=== PATIENT | female | born 1970 | race Caucasian/White ===

== ENCOUNTER 2022-12-27 08:21 | Inpatient (IN) | payer MEDICAID ==
[~2022-12-27] VITALS: Ht 157.5 cm; Wt 80.0 kg
[2022-12-27] MEDS ORDERED: ENAL-88 PO (08:34)
[2022-12-27] MEDS ORDERED: MORPHINE SULFATE 4 MG/ML SYRINGE IVP ONE (09:45)
[2022-12-27 10:03] LABS: BASOPHILS % (AUTO) 0.6 % (0.0-2.0); EOSINOPHILS % (AUTO) 0.4 % (1.0-6.0); HEMATOCRIT 38.5 % (36-46); HEMOGLOBIN 12.9 g/dL (12.0-16.0); LYMPHOCYTES # (AUTO) 1.5 K/uL (1.0-4.8); LYMPHOCYTES % (AUTO) 15.5 % (22.0-44.0); MEAN CORPUSCULAR HEMOGLOBIN 28.2 pg (26.0-34.0); MEAN CORPUSCULAR HGB CONC 33.5 G/dL (31.0-37.0); MEAN CORPUSCULAR VOLUME 84 fL (80-100); MONOCYTES # (AUTO) 0.5 K/uL (0.1-1.0); MONOCYTES % (AUTO) 5.6 % (2.0-9.0); NEUTROPHILS # (AUTO) 7.3 K/uL (1.8-7.7); NEUTROPHILS % (AUTO) 77.9 % (40.0-70.0); PLATELET COUNT (AUTO) 226 K/uL (150-450); RED BLOOD CELL COUNT(AUTO) 4.57 MIL/uL (4.00-5.20); RED CELL DISTRIBUTION WIDTH 14.9 % (11.5-14.5)
[2022-12-27 10:11] LABS: ANION GAP 6 mmol/L (8-16); CALCIUM, TOTAL 9.3 mg/dL (8.8-10.5); CARBON DIOXIDE 29 mmol/L (22-29); CHLORIDE 99 mmol/L (98-107); CREATININE 0.74 mg/dL (0.60-1.30); GLOMERULAR FILTR. RATE CALC > 60 mL/min (>60); GLUCOSE,RANDOM 99 mg/dL (70-110); POTASSIUM 4.6 mmol/L (3.5-5.1); SODIUM SERUM 134 mmol/L (136-145); UREA NITROGEN, BLOOD 18 mg/dL (7-18)
[2022-12-27] MEDS ORDERED: ONDANSETRON HCL 4 MG/2 ML VIAL IVP PRN (10:15)
[2022-12-27] MEDS ORDERED: MORPHINE SULFATE 4 MG/ML SYRINGE IVP PRN (10:15)
[2022-12-27] MEDS ORDERED: SODIUM CHLORIDE 0.9% 1,000 ML IV ONE (10:15)
[2022-12-27] MEDS ORDERED: ACETAMINOPHEN 325 MG TABLET PO PRN (10:15)
[2022-12-27] MEDS ORDERED: HYDROCODONE/ACETAMINOPHEN 5-325 MG TABLET PO PRN ×2 (10:15→13:45)
[2022-12-27 10:16] LABS: ALANINE AMINOTRANSFERASE 30 U/L (12-78); ALBUMIN 4.3 g/dL (3.4-5.0); ALKALINE PHOSPHATASE 63 U/L (46-116); ASPARTATE AMINOTRANSFERASE 27 U/L (15-37); BILIRUBIN,TOTAL 0.4 mg/dL (0.1-1.0); TOTAL PROTEIN, SERUM 7.9 g/dL (6.4-8.2)
[2022-12-27 10:26] LABS: COVID AG,FIA SOURCE NASOPHARYNGEAL
[2022-12-27] MEDS ORDERED: FentaNYL CITRATE PF 100 MCG/2 ML VIAL IVP ONE (12:00)
[2022-12-27] MEDS ORDERED: HYDROmorphone HCL 2 MG/ML SYRINGE IVP ONE (12:00)
[2022-12-27] MEDS ORDERED: MIDAZOLAM HCL 2 MG/2 ML VIAL IVP ONE (12:00)
[2022-12-27 12:06] VITALS: BP 139/61
[2022-12-27] MEDS ORDERED: BISACODYL 10 MG RECTAL RECTAL SUPPOSITORY PR PRN (13:45)
[2022-12-27] MEDS ORDERED: MORPHINE SULFATE 2 MG/ML SYRINGE IVP PRN (13:45)
[2022-12-27] MEDS ORDERED: MAGNESIUM HYDROXIDE SUSPENSION 30 ML UDCUP PO PRN (13:45)
[2022-12-27 15:38] VITALS: BP 129/73
[2022-12-27] MEDS ORDERED: HEPARIN SODIUM,PORCINE 5,000 UNITS/ML VIAL SQ SCH (16:00)
[2022-12-27] MEDS ORDERED: RINGERS SOLUTION,LACTATED 1,000 ML IV ONE (16:23)
[2022-12-27] MEDS ORDERED: VANCOMYCIN HCL 1 GM/VIAL ONE (17:01)
[2022-12-27] MEDS ORDERED: BUPIVACAINE HCL/PF 0.5% 30 ML VIAL ONE (17:02)
[2022-12-27] MEDS ORDERED: BUPIVACAINE HCL/PF 0.25% 30 ML VIAL ONE (17:24)
[2022-12-27] MEDS ORDERED: BUPIVACAINE LIPOSOME/PF 1.3%-13.3MG/ML SUSPENSION 20 ML VIAL INJ ONE (17:30)
[2022-12-27] MEDS ORDERED: MEPERIDINE-PF 25 MG/ML VIAL IVP PRN (18:15)
[2022-12-27] MEDS ORDERED: HYDROmorphone HCL 2 MG/ML SYRINGE IVP PRN (18:15)
[2022-12-27] MEDS ORDERED: FentaNYL CITRATE PF 100 MCG/2 ML VIAL ONE (19:08)
[2022-12-27] MEDS: FentaNYL CITRATE PF 100 MCG/2 ML VIAL IVP PRN ×2 (19:11→19:24)
[2022-12-27] MEDS ORDERED: HYDROmorphone HCL 2 MG/ML SYRINGE ONE (19:13)
[2022-12-27] MEDS: OXYGEN THERAPY IH SCH (20:00)
[2022-12-27 20:11] VITALS: BP 134/75
[2022-12-27] MEDS: DOCUSATE SODIUM 100 MG CAPSULE PO SCH (20:11)
[2022-12-27] MEDS: HYDROCODONE/ACETAMINOPHEN 5-325 MG TABLET PO PRN (21:36)
[2022-12-28] MEDS: CeFAZolin 2 GM/DEXTROSE 50 ML IV SCH ×3 (01:27→18:05)
[2022-12-28] MEDS: ONDANSETRON HCL 4 MG/2 ML VIAL IVP PRN (04:28)
[2022-12-28 05:20] VITALS: BP 137/82
[2022-12-28] MEDS: HYDROCODONE/ACETAMINOPHEN 5-325 MG TABLET PO PRN ×3 (06:11→17:50)
[2022-12-28] MEDS ORDERED: LIDOCAINE/PF 2% 5 ML VIAL IM ONE (06:34)
[2022-12-28] MEDS ORDERED: PROPOFOL 1% 20 ML VIAL IVP ONE (06:34)
[2022-12-28] MEDS ORDERED: ONDANSETRON HCL 4 MG/2 ML VIAL IVP ONE (06:34)
[2022-12-28] MEDS ORDERED: ROCURONIUM BROMIDE 10 MG/ML 5 ML VIAL IVP ONE (06:34)
[2022-12-28] MEDS ORDERED: FentaNYL CITRATE PF 100 MCG/2 ML VIAL IVP ONE (06:34)
[2022-12-28] MEDS ORDERED: MIDAZOLAM HCL 2 MG/2 ML VIAL IVP ONE (06:34)
[2022-12-28] MEDS ORDERED: DEXAMETHASONE SOD PHOS 4 MG/ML VIAL IVP ONE (06:34)
[2022-12-28 06:35] LABS: BASOPHILS % (AUTO) 0.3 % (0.0-2.0); EOSINOPHILS % (AUTO) 0.2 % (1.0-6.0); HEMATOCRIT 34.3 % (36-46); HEMOGLOBIN 11.5 g/dL (12.0-16.0); LYMPHOCYTES # (AUTO) 1.4 K/uL (1.0-4.8); LYMPHOCYTES % (AUTO) 21.7 % (22.0-44.0); MEAN CORPUSCULAR HEMOGLOBIN 28.1 pg (26.0-34.0); MEAN CORPUSCULAR HGB CONC 33.6 G/dL (31.0-37.0); MEAN CORPUSCULAR VOLUME 84 fL (80-100); MONOCYTES # (AUTO) 0.6 K/uL (0.1-1.0); MONOCYTES % (AUTO) 8.8 % (2.0-9.0); NEUTROPHILS # (AUTO) 4.5 K/uL (1.8-7.7); PLATELET COUNT (AUTO) 226 K/uL (150-450); RED CELL DISTRIBUTION WIDTH 14.8 % (11.5-14.5)
[2022-12-28 06:50] LABS: ANION GAP 10 mmol/L (8-16); CALCIUM, TOTAL 8.8 mg/dL (8.8-10.5); CARBON DIOXIDE 26 mmol/L (22-29); CHLORIDE 101 mmol/L (98-107); CREATININE 0.59 mg/dL (0.60-1.30); GLOMERULAR FILTR. RATE CALC > 60 mL/min (>60); GLUCOSE,RANDOM 105 mg/dL (70-110); SODIUM SERUM 137 mmol/L (136-145); UREA NITROGEN, BLOOD 11 mg/dL (7-18)
[2022-12-28 07:32] VITALS: BP 145/92
[2022-12-28] MEDS: PANTOPRAZOLE SODIUM 40 MG DR TABLET PO SCH (07:57)
[2022-12-28] MEDS: ENALAPRIL MALEATE 5 MG TABLET PO SCH (07:58)
[2022-12-28] MEDS: DOCUSATE SODIUM 100 MG CAPSULE PO SCH ×2 (07:58→20:08)
[2022-12-28] MEDS: ENOXAPARIN SODIUM 40 MG/0.4 ML PF SYRINGE SQ SCH (07:59)
[2022-12-28] MEDS: OXYGEN THERAPY IH SCH (08:00)
[2022-12-28] MEDS: ACETAMINOPHEN 325 MG TABLET PO PRN ×2 (10:19→14:40)
[2022-12-28 15:22] VITALS: BP 115/73
[2022-12-28 21:41] VITALS: BP 118/71
[2022-12-29] MEDS: HYDROCODONE/ACETAMINOPHEN 5-325 MG TABLET PO PRN ×5 (00:33→20:04)
[2022-12-29 04:40] VITALS: BP 137/89
[2022-12-29 06:44] VITALS: BP 110/69
[2022-12-29 07:00] LABS: BASOPHILS % (AUTO) 0.7 % (0.0-2.0); EOSINOPHILS % (AUTO) 1.7 % (1.0-6.0); HEMATOCRIT 33.6 % (36-46); HEMOGLOBIN 11.3 g/dL (12.0-16.0); LYMPHOCYTES # (AUTO) 2.3 K/uL (1.0-4.8); LYMPHOCYTES % (AUTO) 28.4 % (22.0-44.0); MEAN CORPUSCULAR HEMOGLOBIN 28.4 pg (26.0-34.0); MEAN CORPUSCULAR HGB CONC 33.5 G/dL (31.0-37.0); MEAN CORPUSCULAR VOLUME 85 fL (80-100); MONOCYTES # (AUTO) 0.7 K/uL (0.1-1.0); NEUTROPHILS % (AUTO) 61.2 % (40.0-70.0); PLATELET COUNT (AUTO) 199 K/uL (150-450); RED BLOOD CELL COUNT(AUTO) 3.97 MIL/uL (4.00-5.20); RED CELL DISTRIBUTION WIDTH 14.8 % (11.5-14.5)
[2022-12-29 07:06] LABS: ANION GAP 6 mmol/L (8-16); CALCIUM, TOTAL 8.4 mg/dL (8.8-10.5); CARBON DIOXIDE 29 mmol/L (22-29); CHLORIDE 101 mmol/L (98-107); CREATININE 0.59 mg/dL (0.60-1.30); GLOMERULAR FILTR. RATE CALC > 60 mL/min (>60); GLUCOSE,RANDOM 103 mg/dL (70-110); SODIUM SERUM 136 mmol/L (136-145); UREA NITROGEN, BLOOD 13 mg/dL (7-18)
[2022-12-29 07:57] VITALS: BP 123/85
[2022-12-29] MEDS: PANTOPRAZOLE SODIUM 40 MG DR TABLET PO SCH (08:58)
[2022-12-29] MEDS: DOCUSATE SODIUM 100 MG CAPSULE PO SCH ×2 (08:58→20:03)
[2022-12-29] MEDS: ENALAPRIL MALEATE 5 MG TABLET PO SCH (08:58)
[2022-12-29] MEDS: ENOXAPARIN SODIUM 40 MG/0.4 ML PF SYRINGE SQ SCH (08:58)
[2022-12-29] MEDS: ONDANSETRON HCL 4 MG/2 ML VIAL IVP PRN (13:31)
[2022-12-29 15:13] VITALS: BP 120/73
[2022-12-29 20:00] VITALS: BP 119/78
[2022-12-30 05:36] VITALS: BP 123/85
[2022-12-30] MEDS: HYDROCODONE/ACETAMINOPHEN 5-325 MG TABLET PO PRN ×3 (06:10→19:40)
[2022-12-30 07:24] VITALS: BP 129/82
[2022-12-30 07:51] LABS: BASOPHILS % (AUTO) 0.4 % (0.0-2.0); EOSINOPHILS % (AUTO) 1.9 % (1.0-6.0); HEMATOCRIT 35.2 % (36-46); HEMOGLOBIN 11.5 g/dL (12.0-16.0); LYMPHOCYTES # (AUTO) 2.1 K/uL (1.0-4.8); LYMPHOCYTES % (AUTO) 27.6 % (22.0-44.0); MEAN CORPUSCULAR HEMOGLOBIN 27.8 pg (26.0-34.0); MEAN CORPUSCULAR HGB CONC 32.8 G/dL (31.0-37.0); MEAN CORPUSCULAR VOLUME 85 fL (80-100); MONOCYTES # (AUTO) 0.6 K/uL (0.1-1.0); MONOCYTES % (AUTO) 8.2 % (2.0-9.0); NEUTROPHILS # (AUTO) 4.6 K/uL (1.8-7.7); NEUTROPHILS % (AUTO) 61.9 % (40.0-70.0); PLATELET COUNT (AUTO) 211 K/uL (150-450); RED BLOOD CELL COUNT(AUTO) 4.16 MIL/uL (4.00-5.20); RED CELL DISTRIBUTION WIDTH 14.8 % (11.5-14.5)
[2022-12-30 08:00] LABS: ANION GAP 7 mmol/L (8-16); CARBON DIOXIDE 29 mmol/L (22-29); CHLORIDE 100 mmol/L (98-107); CREATININE 0.58 mg/dL (0.60-1.30); GLOMERULAR FILTR. RATE CALC > 60 mL/min (>60); GLUCOSE,RANDOM 102 mg/dL (70-110); SODIUM SERUM 136 mmol/L (136-145); UREA NITROGEN, BLOOD 15 mg/dL (7-18)
[2022-12-30] MEDS: OXYGEN THERAPY IH SCH ×2 (08:00→19:46)
[2022-12-30] MEDS: ENOXAPARIN SODIUM 40 MG/0.4 ML PF SYRINGE SQ SCH (08:09)
[2022-12-30] MEDS: ENALAPRIL MALEATE 5 MG TABLET PO SCH (08:09)
[2022-12-30] MEDS: DOCUSATE SODIUM 100 MG CAPSULE PO SCH ×2 (08:09→19:40)
[2022-12-30] MEDS: PANTOPRAZOLE SODIUM 40 MG DR TABLET PO SCH (08:10)
[2022-12-30 15:02] VITALS: BP 132/84
[2022-12-30 19:32] VITALS: BP 120/72
[2022-12-31 03:47] VITALS: BP 128/80
[2022-12-31] MEDS: HYDROCODONE/ACETAMINOPHEN 5-325 MG TABLET PO PRN ×4 (04:01→21:37)
[2022-12-31] MEDS: OXYGEN THERAPY IH SCH ×2 (08:00→19:29)
[2022-12-31 08:03] VITALS: BP 134/87
[2022-12-31] MEDS: DOCUSATE SODIUM 100 MG CAPSULE PO SCH ×2 (08:05→19:29)
[2022-12-31] MEDS: ENOXAPARIN SODIUM 40 MG/0.4 ML PF SYRINGE SQ SCH (08:05)
[2022-12-31] MEDS: ENALAPRIL MALEATE 5 MG TABLET PO SCH (08:05)
[2022-12-31] MEDS: PANTOPRAZOLE SODIUM 40 MG DR TABLET PO SCH (08:05)
[2022-12-31 16:00] VITALS: BP 113/76
[2022-12-31 20:14] VITALS: BP 121/74
[2022-12-31] MEDS ORDERED: MORPHINE SULFATE 2 MG/ML SYRINGE IVP ONE (23:15)
[2023-01-01 05:51] VITALS: BP 140/92
[2023-01-01] MEDS: OXYGEN THERAPY IH SCH (08:00)
[2023-01-01] MEDS: ENOXAPARIN SODIUM 40 MG/0.4 ML PF SYRINGE SQ SCH (08:54)
[2023-01-01] MEDS: HYDROCODONE/ACETAMINOPHEN 5-325 MG TABLET PO PRN ×4 (08:55→21:14)
[2023-01-01] MEDS: PANTOPRAZOLE SODIUM 40 MG DR TABLET PO SCH (08:56)
[2023-01-01] MEDS: DOCUSATE SODIUM 100 MG CAPSULE PO SCH ×2 (09:00→19:54)
[2023-01-01] MEDS: ENALAPRIL MALEATE 5 MG TABLET PO SCH (09:04)
[2023-01-01 20:02] VITALS: BP 125/75
[2023-01-02 03:47] VITALS: BP 113/71
[2023-01-02] MEDS: HYDROCODONE/ACETAMINOPHEN 5-325 MG TABLET PO PRN ×4 (05:23→23:12)
[2023-01-02 07:17] VITALS: BP 114/72
[2023-01-02] MEDS: PANTOPRAZOLE SODIUM 40 MG DR TABLET PO SCH (08:00)
[2023-01-02] MEDS: ENALAPRIL MALEATE 5 MG TABLET PO SCH (08:00)
[2023-01-02] MEDS: DOCUSATE SODIUM 100 MG CAPSULE PO SCH ×2 (08:00→19:59)
[2023-01-02] MEDS: ENOXAPARIN SODIUM 40 MG/0.4 ML PF SYRINGE SQ SCH (08:08)
[2023-01-02] MEDS: ACETAMINOPHEN 325 MG TABLET PO PRN (09:15)
[2023-01-02 15:12] VITALS: BP 115/67
[2023-01-02 19:45] VITALS: BP 105/57
[2023-01-03] MEDS: HYDROCODONE/ACETAMINOPHEN 5-325 MG TABLET PO PRN ×2 (04:54→20:12)
[2023-01-03 05:01] VITALS: BP 128/69
[2023-01-03 07:34] VITALS: BP 118/76
[2023-01-03] MEDS: OXYGEN THERAPY IH SCH ×2 (08:00→20:00)
[2023-01-03] MEDS: DOCUSATE SODIUM 100 MG CAPSULE PO SCH ×2 (08:35→20:07)
[2023-01-03] MEDS: PANTOPRAZOLE SODIUM 40 MG DR TABLET PO SCH (08:35)
[2023-01-03] MEDS: ENALAPRIL MALEATE 5 MG TABLET PO SCH (08:35)
[2023-01-03] MEDS ORDERED: ONDANSETRON HCL 4 MG/2 ML VIAL IVP ONE (12:00)
[2023-01-03] MEDS ORDERED: DEXAMETHASONE SOD PHOS 4 MG/ML VIAL IVP ONE (12:00)
[2023-01-03] MEDS ORDERED: 0.9% SODIUM CHLORIDE 10 ML VIAL IVP ONE (12:00)
[2023-01-03] MEDS ORDERED: ROCURONIUM BROMIDE 10 MG/ML 5 ML VIAL IVP ONE (12:00)
[2023-01-03] MEDS ORDERED: PROPOFOL 1% 20 ML VIAL IVP ONE (12:00)
[2023-01-03] MEDS ORDERED: KETOROLAC TROMETHAMINE 60 MG/2 ML VIAL IM ONE (12:00)
[2023-01-03] MEDS ORDERED: METOPROLOL TARTRATE 5 MG/5 ML VIAL IVP ONE (12:00)
[2023-01-03] MEDS ORDERED: LIDOCAINE/PF 2% 5 ML VIAL IM ONE (12:00)
[2023-01-03] MEDS ORDERED: SODIUM CHLORIDE 0.9% 1,000 ML ONE (12:22)
[2023-01-03] MEDS ORDERED: VANCOMYCIN HCL 1 GM/VIAL ONE (13:29)
[2023-01-03] MEDS ORDERED: BUPIVACAINE HCL/PF 0.25% 30 ML VIAL ONE (13:29)
[2023-01-03] MEDS ORDERED: SODIUM CL IRRIG SOLN BAG 3,000 ML IRRIG ONE (13:30)
[2023-01-03] MEDS ORDERED: BUPIVACAINE HCL/PF 0.5% 30 ML VIAL ONE (13:36)
[2023-01-03] MEDS ORDERED: BUPIVACAINE LIPOSOME/PF 1.3%-13.3MG/ML SUSPENSION 20 ML VIAL INJ ONE (13:45)
[2023-01-03] MEDS ORDERED: SODIUM CHLORIDE 0.9% 1,000 ML IV ONE (14:00)
[2023-01-03] MEDS ORDERED: MEPERIDINE-PF 25 MG/ML VIAL IVP PRN (14:30)
[2023-01-03] MEDS ORDERED: FentaNYL CITRATE PF 100 MCG/2 ML VIAL IVP PRN (14:30)
[2023-01-03] MEDS ORDERED: HYDROmorphone HCL 2 MG/ML SYRINGE ONE (16:04)
[2023-01-03] MEDS: HYDROmorphone HCL 2 MG/ML SYRINGE IVP PRN ×2 (16:09→16:18)
[2023-01-03 16:47] VITALS: BP 138/87
[2023-01-03] MEDS: ZOLPIDEM TARTRATE 5 MG TABLET PO PRN (20:12)
[2023-01-03 20:19] VITALS: BP 126/88
[2023-01-03] MEDS: CeFAZolin 1 GM/DEXTROSE 50 ML IV SCH (21:26)
[2023-01-04] MEDS: HYDROCODONE/ACETAMINOPHEN 5-325 MG TABLET PO PRN ×3 (04:22→14:03)
[2023-01-04 04:26] VITALS: BP 142/84
[2023-01-04] MEDS: CeFAZolin 1 GM/DEXTROSE 50 ML IV SCH ×2 (05:40→15:33)
[2023-01-04 07:59] VITALS: BP 137/85
[2023-01-04] MEDS: OXYGEN THERAPY IH SCH ×2 (08:00→20:00)
[2023-01-04] MEDS: DOCUSATE SODIUM 100 MG CAPSULE PO SCH ×2 (09:00→20:03)
[2023-01-04] MEDS: ENALAPRIL MALEATE 5 MG TABLET PO SCH (09:23)
[2023-01-04] MEDS: ENOXAPARIN SODIUM 40 MG/0.4 ML PF SYRINGE SQ SCH (09:23)
[2023-01-04] MEDS: PANTOPRAZOLE SODIUM 40 MG DR TABLET PO SCH (09:23)
[2023-01-04] MEDS: HYDROmorphone HCL 2 MG/ML SYRINGE IVP PRN ×3 (11:11→23:42)
[2023-01-04 16:39] VITALS: BP 137/85
[2023-01-04 19:55] VITALS: BP 114/69
[2023-01-04] MEDS ORDERED: LOPERAMIDE HCL 2 MG CAPSULE PO ONE (21:00)
[2023-01-04 23:42] VITALS: BP 110/73
[2023-01-04] MEDS: ZOLPIDEM TARTRATE 5 MG TABLET PO PRN (23:46)
[2023-01-05] MEDS: HYDROmorphone HCL 2 MG/ML SYRINGE IVP PRN ×2 (04:29→10:30)
[2023-01-05 04:39] VITALS: BP 119/78
[2023-01-05 07:39] VITALS: BP 110/69
[2023-01-05] MEDS: OXYGEN THERAPY IH SCH ×2 (08:00→20:00)
[2023-01-05] MEDS: ENOXAPARIN SODIUM 40 MG/0.4 ML PF SYRINGE SQ SCH (08:08)
[2023-01-05] MEDS: ACETAMINOPHEN 325 MG TABLET PO PRN ×2 (08:09→15:19)
[2023-01-05] MEDS: ENALAPRIL MALEATE 5 MG TABLET PO SCH (08:10)
[2023-01-05] MEDS: DOCUSATE SODIUM 100 MG CAPSULE PO SCH ×2 (08:10→22:01)
[2023-01-05] MEDS: PANTOPRAZOLE SODIUM 40 MG DR TABLET PO SCH (08:10)
[2023-01-05] MEDS: HYDROCODONE/ACETAMINOPHEN 5-325 MG TABLET PO PRN ×2 (12:58→22:02)
[2023-01-05 15:16] VITALS: BP 104/62
[2023-01-05 20:41] VITALS: BP 111/62
[2023-01-05] MEDS: ZOLPIDEM TARTRATE 5 MG TABLET PO PRN (22:01)
[2023-01-06] MEDS: HYDROCODONE/ACETAMINOPHEN 5-325 MG TABLET PO PRN ×2 (04:34→20:16)
[2023-01-06 04:51] VITALS: BP 121/67
[2023-01-06 08:13] VITALS: BP 124/75
[2023-01-06] MEDS: ENOXAPARIN SODIUM 40 MG/0.4 ML PF SYRINGE SQ SCH (09:09)
[2023-01-06] MEDS: PANTOPRAZOLE SODIUM 40 MG DR TABLET PO SCH (09:09)
[2023-01-06] MEDS: ENALAPRIL MALEATE 5 MG TABLET PO SCH (09:10)
[2023-01-06] MEDS: DOCUSATE SODIUM 100 MG CAPSULE PO SCH ×2 (09:10→20:13)
[2023-01-06] MEDS ORDERED: HYDROmorphone HCL 2 MG/ML SYRINGE IVP PRN (12:15)
[2023-01-06 15:54] VITALS: BP 111/64
[2023-01-06] MEDS: OXYGEN THERAPY IH SCH (19:48)
[2023-01-06] MEDS: ZOLPIDEM TARTRATE 5 MG TABLET PO PRN (20:17)
[2023-01-06 21:14] VITALS: BP 110/64
[2023-01-07 04:50] VITALS: BP 101/57
[2023-01-07] MEDS: DOCUSATE SODIUM 100 MG CAPSULE PO SCH ×2 (07:56→19:53)
[2023-01-07] MEDS: ENOXAPARIN SODIUM 40 MG/0.4 ML PF SYRINGE SQ SCH (07:56)
[2023-01-07] MEDS: PANTOPRAZOLE SODIUM 40 MG DR TABLET PO SCH (07:56)
[2023-01-07] MEDS: OXYGEN THERAPY IH SCH (08:00)
[2023-01-07 08:17] VITALS: BP 104/60
[2023-01-07] MEDS: ENALAPRIL MALEATE 5 MG TABLET PO SCH (09:00)
[2023-01-07] MEDS: HYDROCODONE/ACETAMINOPHEN 5-325 MG TABLET PO PRN ×3 (09:19→21:07)
[2023-01-07] MEDS ORDERED: HYDROmorphone HCL 2 MG/ML SYRINGE IVP PRN (10:00)
[2023-01-07 15:12] VITALS: BP 112/71
[2023-01-07 20:32] VITALS: BP 114/68
[2023-01-07] MEDS: ZOLPIDEM TARTRATE 5 MG TABLET PO PRN (21:07)
[2023-01-08] MEDS: HYDROCODONE/ACETAMINOPHEN 5-325 MG TABLET PO PRN ×2 (04:38→10:36)
[2023-01-08 04:47] VITALS: BP 107/69
[2023-01-08] MEDS: OXYGEN THERAPY IH SCH (07:42)
[2023-01-08] MEDS: DOCUSATE SODIUM 100 MG CAPSULE PO SCH (07:42)
[2023-01-08] MEDS: PANTOPRAZOLE SODIUM 40 MG DR TABLET PO SCH (07:42)
[2023-01-08] MEDS: ENOXAPARIN SODIUM 40 MG/0.4 ML PF SYRINGE SQ SCH (07:43)
[2023-01-08 08:11] VITALS: BP 119/86
[2023-01-08] MEDS: ENALAPRIL MALEATE 5 MG TABLET PO SCH (09:00)
[2023-01-08] MEDS ORDERED: RIVA10TA PO (13:30)
[2023-01-08] MEDS ORDERED: HYDR-4723 PO (13:30)
[2023-01-08] MEDS ORDERED: ENAL-87 PO (13:30)
[2023-01-08 15:56] VITALS: BP 134/80
== END 2023-01-08 16:47 | disposition home or self-care (01) | DRG 313 ==
LOC: EMS 08:22 → 6S 11:16
PROVIDERS: ADMIT Internal Medicine; ATTEND Internal Medicine
PROC: 0QSH05Z Reposition Left Tibia with External Fixation Device, Open Approach (ICD-10-PCS; principal; 2022-12-27 17:30)
PROC: 0QSH04Z Reposition Left Tibia with Internal Fixation Device, Open Approach (ICD-10-PCS; 2023-01-03)
PROC: 0QPH05Z Removal of External Fixation Device from Left Tibia, Open Approach (ICD-10-PCS; 2023-01-03)
DX: S82.392A Other fracture of lower end of left tibia, initial encounter for closed fracture (principal); E66.9 Obesity, unspecified; I10 Essential (primary) hypertension; W17.81XA Fall down embankment (hill), initial encounter; Z20.822 Contact with and (suspected) exposure to COVID-19; Z68.32 Body mass index [BMI] 32.0-32.9, adult; Z79.899 Other long term (current) drug therapy; Y93.89 Activity, other specified; Y92.89 Other specified places as the place of occurrence of the external cause; Y99.8 Other external cause status; S82.402A Unspecified fracture of shaft of left fibula, initial encounter for closed fracture
CPT/HCPCS: 71045; 73700; 80048; 80053; 85025; 87081; 93005; 97110; 97116; 97162; 97530; 97535; 99285; C9290; G0238; J0690; J1100; J1170; J1650; J1885; J2250; J2270; J2405; J2704; J3010; J3370; J3490; J7030; J7120; 36415-L1; 36415-TC; C1716; Z7610